=== PATIENT | male | born 1965 | race Caucasian/White ===

== ENCOUNTER 2016-08-19 19:00 | Emergency (ER) | payer OTHER ==
[~2016-08-19] VITALS: Ht 177.8 cm; Wt 78.0 kg
[2016-08-19 19:11] VITALS: Ht 177.8 cm; Wt 78.0 kg
[2016-08-19] MEDS ORDERED: KETOROLAC 60 MG INJ IM STA (20:58)
[2016-08-19] MEDS ORDERED: HYDR-906 PO (21:44)
[2016-08-19] MEDS ORDERED: IBUP-1542 PO (21:44)
--- NOTE | 2016-08-19 21:50 | ERD ---
ER Documentation Chief Complaint Date/Time DATE: 08/19/16 TIME: 21:47 Chief Complaint Pt with chronic back pain X 1 day. HPI This is a 51-year-old male who presents today with chronic back pain. Patient states that he is homeless and poor and has not had any medication for his back pain. Back pain is described as stabbing quality it radiates from his neck all the way down to his tailbone. Patient denies any numbness or tingling of his lower extremities. He denies any urinary bowel incontinence. He denies any saddle like anesthesia. Patient denies any IV drug use he denies any fevers or chills. ROS 12 point review of systems was done, all negative except per HPI. Medications Home Meds Active Scripts Ibuprofen* (Motrin*) 600 Mg Tab, 600 MG PO Q6, #30 TAB Prov:NIURKA URIBE 08/19/16 Allergies Allergies: Coded Allergies: No Known Allergy (Unverified , 08/19/16) PMhx/Soc History of Surgery: No Anesthesia Reaction: No Hx Neurological Disorder: No Hx Respiratory Disorders: No Hx Cardiac Disorders: No Hx Psychiatric Problems: No Hx Miscellaneous Medical Probl: Yes (chronic back pain ) Hx Alcohol Use: No Hx Substance Use: No Hx Tobacco Use: Yes Smoking Status: Current every day smoker Physical Exam Vitals Vital Signs Date Time Temp Pulse Resp B/P Pulse Ox O2 Delivery O2 Flow Rate FiO2 08/19/16 19:11 97.9 89 18 167/90 100 Physical Exam GENERAL: The patient is well developed and appropriate for usual state of health , in no apparent distress. NECK: C-spine is soft and supple. There is no cervical lymphadenopathy. CHEST: Clear to auscultation bilaterally. There are no rales, wheezes or rhonchi. HEART: Regular rate and rhythm. No murmurs, clicks, rubs or gallops. ABDOMEN: Soft, nontender and nondistended. Good bowel sounds. No rebound or guarding. No gross peritonitis. No gross organomegaly or masses. No Ramos sign or McBurney point tenderness. No pulsatile abdominal mass. BACK: No midline or flank tenderness. Tense paraspinal muscles. Negative leg raise test. No step- offs. EXTREMITIES: Equal pulses bilaterally. There is no peripheral clubbing, cyanosis or edema. No focal swelling or erythema. Full range of motion. Grossly neurovascularly intact. NEURO: Alert and oriented. Cranial nerves II through XII are intact. Motor strength in all 4 extremities with 5/5 strength. Sensation grossly intact. Normal speech and gait. SKIN: There is no apparent rash or petechia. The skin is warm and dry. Results 24 hrs Current Medications Medications (Trade) Dose Ordered Sig/[place] Route PRN Reason Start Time Stop Time Status Last Admin Dose Admin Ketorolac Tromethamine (Toradol) 60 mg ONCE STAT IM 08/19/16 20:58 08/19/16 20:59 DC Procedures/MDM Differential Diagnosis includes but is not limited to back strain, vertebral fracture, epidural abscess, cauda equina, herniated disc, AAA rupture, kidney stones, UTI, pyelonephritis. This is a 51-year-old male who presents to the ER with chronic back pain. Patient has back pain for years. At this time patient is neurovascularly intact and has full range of motion of his bilateral lower extremities he did ambulate in the ER without any problems. Suspicion for cauda equina or epidural abscess is low. Patient is afebrile extremely well- appearing. Patient refused Toradol in the ER and started saying profanities to the nurses. He will be sent home with ibuprofen. Needs to follow-up with his primary care doctor within 1-2 days or return to ER sooner if symptoms worsen. My medical decision making was shared with the patient he understands and agrees with plan. Departure Diagnosis: Primary Impression: Back pain Condition: Stable Patient Instructions: Back Pain (Acute Or Chronic) Additional Instructions: Call your primary care doctor TOMORROW for an appointment during the next 1-2 days.See the doctor sooner or return here if your condition worsens before your appointment time. NIURKA URIBE August 19, 2016 21:50 NIURKA URIBE August 19, 2016 21:50
== END 2016-08-19 22:09 | disposition home or self-care (01) ==
LOC: FTE 19:00
DX: M54.9 Dorsalgia, unspecified (principal); F17.210 Nicotine dependence, cigarettes, uncomplicated
CPT/HCPCS: J1885; Z7502; 99283